=== PATIENT | female | born 1950 | race Caucasian/White ===

== ENCOUNTER 2018-01-03 12:38 | Observation (INO) | payer OTHER ==
[~2018-01-03] VITALS: Ht 160 cm; Wt 113.5 kg
[~2018-01-03 12:38] MED LIST: ALPRAZOLAM0.25 M2 PO; ARTHROTEC; ARTHROTEC 501 TABLET; CALCIUM CARB1 TABLET PO; ENDOCET 5-3251 EACH PO; ESTRACE42.5 GM VG; EVISTA; EVISTA60 MG; MELATONIN5 M1 PO; MELOXICAM7.5 MG PO; MULTIVITAMIN; MULTIVITAMIN1 EAC1; NEXIUM; NUVIGIL; PREMARIN; PROAIR HFA8.5 GM IH; PYRIDIUM100 MG PO; PYRIDIUM200 MG PO; TYLENOL EXTRA500 MG PO; ZOFRAN4 MG PO
[2018-01-03 13:57] LABS: HEMATOCRIT 42.3 % (36.0-46.0); HEMOGLOBIN 13.4 G/DL (11.9-15.5); MCH 25.9 PG (29.0-34.0); MCHC 31.7 G/DL (30.0-36.0); MCV 81.8 FL (83-99); PLATELET COUNT 229 K/uL (156-360); RBC DIS.WIDTH-CV 13.5 % (11.8-14.6); RBC DIS.WIDTH-SD 40.2 % (39-53); RED BLOOD COUNT 5.17 M/uL (3.80-5.20); WHITE BLOOD COUNT 8.5 K/uL (4.1-10.2)
[2018-01-03 14:07] LABS: CHLORIDE 105 mEq/L (99-109); POTASSIUM 4.5 mEq/L (3.7-5.4); SODIUM 140 mEq/L (136-147)
[2018-01-03 14:09] LABS: GLUCOSE 95 mg/dL (70-99); TOTAL PROTEIN 7.3 g/dL (6.4-8.3)
[2018-01-03 14:11] LABS: TOTAL BILIRUBIN 0.3 mg/dL (0.0-1.0)
[2018-01-03 14:13] LABS: ALKALINE PHOSPHATASE 87 IU/L (3-129); CREATININE 0.7 mg/dL (0.6-1.3); GFR ESTIMATE (CALCULATED) > 59 mL/min/
[2018-01-03 14:14] LABS: UREA NITROGEN (BUN) 10 mg/dL (9-23)
[2018-01-03 14:15] LABS: AST (GOT) 23 IU/L (2-34)
[2018-01-03 14:16] LABS: ALT (GPT) 33 IU/L (3-49)
[2018-01-03 14:25] LABS: TROP-I INTERPRETATION NEGATIVE; TROPONIN-I < 0.01 ng/mL (0.0-0.30)
[2018-01-03 15:24] LABS: LIPASE 20 U/L (1.0-51.0)
[2018-01-03 16:52] LABS: APPEARANCE CLEAR ((CLEAR)); BILIRUBIN NEGATIVE; BLOOD NEGATIVE; COLOR YELLOW ((YELLOW)); GLUCOSE (STRIP) NEGATIVE; KETONES 5; LEUKOCYTES NEGATIVE; NITRITE NEGATIVE; PROTEIN (STRIP) NEGATIVE; SPECIFIC GRAVITY 1.047 (1.000-1.030); UCUL ADDED? NO; UROBILINOGEN 0.2 MG/DL (0.2-1.0)
[2018-01-03 17:26] LABS: TROP-I INTERPRETATION NEGATIVE; TROPONIN-I < 0.01 ng/mL (0.0-0.30)
[2018-01-03] MEDS ORDERED: CALCIUM 500 WI1 EAC2 PO (21:34)
[2018-01-03] MEDS ORDERED: OMEPRAZOLE20 MG PO (21:38)
[2018-01-03] MEDS ORDERED: LISINOPRIL2.5 MG PO (21:39)
[2018-01-03 21:40] LABS: HDL CHOLESTEROL 56 MG/DL (Desirable>=50); LDL CHOLESTEROL 83 mg/dL (Desirable<100); NON-HDL CHOLESTEROL 97 mg/dL (Desirable<160); TOTAL CHOLESTEROL 153 mg/dL (Desirable<200); TRIGLYCERIDES 68 MG/DL (Normal: <150)
[2018-01-03] MEDS ORDERED: METFORMIN HCL500 MG PO (21:40)
[2018-01-03] MEDS ORDERED: TURMERIC500 M2 PO (21:42)
[2018-01-03] MEDS ORDERED: VITAMIN B-121000 MC4 SL (21:44)
[2018-01-03] MEDS ORDERED: FERRETTS325 MG PO (21:44)
[2018-01-03 22:00] VITALS: BP 150/65
[2018-01-04 04:21] VITALS: BP 116/54
[2018-01-04 06:28] LABS: TROP-I INTERPRETATION NEGATIVE; TROPONIN-I < 0.01 ng/mL (0.0-0.30)
[2018-01-04 07:14] VITALS: BP 113/51
[2018-01-04 11:26] VITALS: BP 111/56
[2018-01-04 15:27] VITALS: BP 127/61
[2018-01-04 18:19] VITALS: BP 126/58
[2018-01-04] MEDS ORDERED: CLOPIDOGREL75 MG PO (19:37)
[2018-01-04] MEDS ORDERED: ASPIR-LOW81 MG PO (19:37)
[2018-01-04] MEDS ORDERED: DEXILANT60 MG PO (19:40)
== END 2018-01-04 20:44 | disposition home or self-care (01) ==
LOC: RME 12:38 → EME 12:38 → RME 17:50 → EDOF 20:52 → ENRESERV 20:54 → 4SOUTH 21:41
PROVIDERS: Internal Medicine; Nurse Practitioner Family
DX: R07.89 Other chest pain (principal); R94.31 Abnormal electrocardiogram [ECG] [EKG]; E66.01 Morbid (severe) obesity due to excess calories; Z98.84 Bariatric surgery status; F17.200 Nicotine dependence, unspecified, uncomplicated; N20.0 Calculus of kidney; Z87.19 Personal history of other diseases of the digestive system; Z90.49 Acquired absence of other specified parts of digestive tract; Z90.710 Acquired absence of both cervix and uterus; J45.909 Unspecified asthma, uncomplicated; E11.9 Type 2 diabetes mellitus without complications; K21.9 Gastro-esophageal reflux disease without esophagitis; Z88.2 Allergy status to sulfonamides; Z88.5 Allergy status to narcotic agent; Z88.8 Allergy status to other drugs, medicaments and biological substances
CPT/HCPCS: 71046; 74177; 80053; 80061; 81003; 83690; 84484; 85027; 93005; 99281; 99285; G0378; J0500; J1170; J1650; J1885; J2405; J3010; J7030